=== PATIENT | female | born 1990 ===

== ENCOUNTER 2020-01-19 14:45 | Inpatient (IN) | payer OTHER ==
[~2020-01-19] VITALS: Ht 154.9 cm; Wt 85.3 kg
[2020-01-29] MEDS ORDERED: LEVOTHYROXINE25 MCG PO (08:32)
[2020-01-29] MEDS ORDERED: SYNTHROID200 MCG PO (08:32)
[2020-01-29] MEDS ORDERED: PRENATAL TABLE1 EAC1 PO (08:33)
[2020-01-31] MEDS ORDERED: EC-NAPROSYN500 MG PO (08:55)
== END 2020-01-31 12:27 | DRG 807 ==
LOC: LDR 01-29 06:44 → OB/GYN 01-29 06:44 → LDR 02-03 14:45
PROVIDERS: ADMIT Obstetrics & Gynecology; ATTEND Obstetrics & Gynecology
PROC: 10E0XZZ Delivery of Products of Conception, External Approach (ICD-10-PCS; principal; 2020-01-29)
PROC: 4A0HXFZ Measurement of Products of Conception, Cardiac Rhythm, External Approach (ICD-10-PCS; 2020-01-29)
DX: O80 Encounter for full-term uncomplicated delivery (principal); Z37.0 Single live birth; Z3A.39 39 weeks gestation of pregnancy